=== PATIENT | female | born 1960 | race Caucasian/White ===

== ENCOUNTER 2019-03-23 22:10 | Emergency (ER) | payer OTHER ==
[~2019-03-23] VITALS: Ht 170.2 cm; Wt 60.8 kg
[2019-03-23 22:19] VITALS: BP 124/80
--- NOTE | 2019-03-23 23:07 | NUR ---
Pt moved to room at this time
--- NOTE | 2019-03-23 23:09 | NUR ---
pt to room from lobby
[2019-03-23 23:35] LABS: CULTURE INDICATED? NO; MICROSCOPIC AUTO
[2019-03-23 23:43] LABS: BASOPHILS # (AUTO) 0.04 x10^3/uL (0-0.1); BASOPHILS % (AUTO) 1 % (0-1); EOSINOPHILS # (AUTO) 0.06 x10^3/uL (0-0.4); EOSINOPHILS % (AUTO) 1 % (1-7); LYMPHOCYTES # (AUTO) 1.92 x10^3/uL (1-3.4); LYMPHOCYTES % (AUTO) 29 % (22-44); MD NO; MEAN CORPUSCULAR HEMOGLOBIN 31.8 pg (27.0-34.8); MEAN CORPUSCULAR HGB CONC 33.6 g/dL (32.4-35.8); MEAN CORPUSCULAR VOLUME 94.6 fL (80-100); MEAN PLATELET VOLUME 7.9 fL (7.4-10.4); MONOCYTES # (AUTO) 0.73 x10^3/uL (0.2-0.8); MONOCYTES % (AUTO) 11 % (2-9); NEUTROPHILS # (AUTO) 3.84 x10^3/uL (1.8-6.8); NEUTROPHILS % (AUTO) 58 % (42-75); PLATELET COUNT 252 x10^3/uL (130-400); RED BLOOD COUNT 4.41 x10^6/uL (3.82-5.3); RED CELL DISTRIBUTION WIDTH 13.3 % (9.6-15.2)
[2019-03-23 23:54] LABS: ALANINE AMINOTRANSFERASE 48 U/L (12-78); ALBUMIN 3.5 g/dL (3.4-5.0); ANION GAP 7 mmol/L (5-15); CALCIUM 8.4 mg/dL (8.5-10.1); CHLORIDE 94 mmol/L (98-107); CREATININE 0.61 mg/dL (0.55-1.02)
[2019-03-23 23:59] LABS: ALKALINE PHOSPHATASE 71 U/L (45-117); BILIRUBIN,TOTAL 1.1 mg/dL (0.2-1.0); TOTAL PROTEIN 6.9 g/dL (6.4-8.2); TROPONIN I < 0.015 ng/mL (0.000-0.045)
[2019-03-24] MEDS ORDERED: POTASSIUM CHLORIDE 20 MEQ TAB.ER.PRT ONE (00:25)
[2019-03-24] MEDS ORDERED: POTASSIUM CHLORIDE 20 MEQ TAB.ER.PRT PO ONE (00:30)
[2019-03-24] MEDS ORDERED: ONDANSETRON ODT 4 MG ONE (00:33)
[2019-03-24] MEDS ORDERED: ONDANSETRON ODT 4 MG PO ONE (01:00)
[2019-03-24] MEDS ORDERED: MAALOX/HYOSCYAMINE/LIDOCAINE 45 ML BTL ONE (01:22)
== END 2019-03-24 01:33 | disposition home or self-care (01) ==
LOC: ED 23:36
DX: A09 Infectious gastroenteritis and colitis, unspecified (principal)
CPT/HCPCS: 36415; 80053; 81001; 83690; 83735; 84443; 84484; 85025; 93005; 99284; Q0162